=== PATIENT | male | born 1960 | race Caucasian/White ===

== ENCOUNTER 2016-07-18 18:40 | Emergency (ER) | payer MEDICAID ==
[~2016-07-18] VITALS: Ht 172.7 cm; Wt 81.8 kg
[2016-07-18] MEDS ORDERED: LIDOCAINE HCL BUFFERED 1% 20 ML VIAL INJ ONE (19:30)
[2016-07-18] MEDS ORDERED: PERTUSS(ACELL),DIPH,TET VAC/PF 0.5 ML VIAL IM ONE (19:45)
[2016-07-18] MEDS ORDERED: CEPHALEXIN MONOHYDRATE 500 MG CAPSULE PO ONE (21:00)
[2016-07-18 21:11] VITALS: BP 126/75
== END 2016-07-18 21:36 | disposition home or self-care (01) ==
LOC: EMS 18:43
DX: S51.812A Laceration without foreign body of left forearm, initial encounter (principal); F17.210 Nicotine dependence, cigarettes, uncomplicated; W45.8XXA Other foreign body or object entering through skin, initial encounter; Y93.89 Activity, other specified; Y92.89 Other specified places as the place of occurrence of the external cause; Y99.8 Other external cause status
CPT/HCPCS: 12035; 73090; 90471; 90715; 99284; J3490; 29105

== ENCOUNTER 2016-07-20 15:21 | Emergency (ER) | payer MEDICAID ==
[~2016-07-20] VITALS: Ht 182.9 cm; Wt 95.0 kg
[2016-07-20] MEDS ORDERED: CEPH-582 PO (16:18)
[2016-07-20] MEDS ORDERED: HYDR-309 PO (16:18)
[2016-07-20 19:13] VITALS: BP 141/82
== END 2016-07-20 19:17 | disposition home or self-care (01) ==
LOC: EMS 15:22
DX: S51.812D Laceration without foreign body of left forearm, subsequent encounter (principal); F17.210 Nicotine dependence, cigarettes, uncomplicated
CPT/HCPCS: 99283